=== PATIENT | female | born 2000 | race Caucasian/White ===

== ENCOUNTER 2020-07-29 11:07 | Emergency (ER) | payer BC, OTHER ==
[~2020-07-29] VITALS: Ht 170.2 cm; Wt 56.2 kg
[2020-07-29 11:22] VITALS: BP 120/66
--- NOTE | 2020-07-29 11:28 | NUR ---
PT AMBULATED TO BED 7 WITH STEADY GAIT
--- NOTE | 2020-07-29 11:42 | NUR ---
20 YEAR OLD FEMALE COMPLAINS OF NAUSEA, VOMITTING, AND DIARRHEA X TODAY. PT STATES THAT ANOTHER PERSON IN FAMILY IS HAVING SIMILAR SYMPTOMS. PT DENIES BLOOD IN VOMIT. BOWEL SOUNDS NORMOACTIVE, NONTENDER. PT AOX4, BREATHING EVEN AND UNLABORED, SKIN WARM AND DRY. BED IN LOWEST POSITION, LOCKED, BED RAIL UPX1. PMH - DENIES ALLERGIES - NKA
--- NOTE | 2020-07-29 11:57 | NUR ---
DR PACE AT BEDSIDE EVALUATING PT.
[2020-07-29] MEDS ORDERED: ONDANSETRON 4 MG ODT PO ONE (12:10)
--- NOTE | 2020-07-29 13:08 | NUR ---
LEESA AND INFLUENZA SWAB SENT TO LAB
[2020-07-29] MEDS ORDERED: ONDA-24 PO (14:07)
--- NOTE | 2020-07-29 14:10 | NUR ---
Note [email or web address] in EDM - 07/29/20 at 1436 by YISSEL Patient discharged with v/s stable. Written and verbal after care instructions about diarrhea, vomitting given and explained. Patient alert, oriented and verbalized understanding of instructions. Ambulatory with steady gait. All questions addressed prior to discharge. ID band removed. Patient advised to follow up with PMD. Rx of zofran given. Patient educated on indication of medication including possible reaction and side effects. Opportunity to ask questions provided and answered.
[2020-07-29 14:20] VITALS: BP 120/66
== END 2020-07-29 14:10 | disposition home or self-care (01) ==
LOC: MED 11:07
DX: R11.10 Vomiting, unspecified (principal); Z20.822 Contact with and (suspected) exposure to COVID-19; R19.7 Diarrhea, unspecified; R10.9 Unspecified abdominal pain; Z79.899 Other long term (current) drug therapy
CPT/HCPCS: 81002; 81025; 87426; 87804; 99283; Q0162

== ENCOUNTER 2021-08-20 11:13 | Emergency (ER) | payer BC, OTHER ==
[~2021-08-20] VITALS: Ht 170.2 cm; Wt 52.2 kg
[~2021-08-20 11:13] MED LIST: ONDA-188 PO
[2021-08-20 11:18] VITALS: BP 123/92
--- NOTE | 2021-08-20 11:22 | NUR ---
PT AMBULATED TO BED 12
[2021-08-20] MEDS ORDERED: ONDANSETRON 4 MG ODT PO ONE (11:35)
[2021-08-20] MEDS ORDERED: DIPHENOXYLATE /ATROPINE 2.5 MG TAB PO ONE (11:35)
[2021-08-20] MEDS ORDERED: KETOROLAC 60 MG/2 ML VIAL IM ONE (11:35)
--- NOTE | 2021-08-20 11:44 | NUR ---
pt c/o diffuse abdominal pain with n/v/d since 0900.
[2021-08-20 12:21] LABS: HEMATOCRIT 45.4 % (36-48); HEMOGLOBIN 15.1 g/dL (12.0-16.0); MEAN CORPUSCULAR HEMOGLOBIN 29 pg (27-31); MEAN CORPUSCULAR HGB CONC 33 g/dL (33-37); MEAN CORPUSCULAR VOLUME 87.4 fL (80-94); PLATELET COUNT (AUTO) 211 K/uL (140-450); RED CELL DISTRIBUTION WIDTH 13.2 % (11.6-13.7); WHITE BLOOD COUNT (AUTO) 12.2 K/uL (4.8-10.8)
[2021-08-20 12:22] LABS: ALBUMIN 4.4 g/dL (3.4-5.0); ANION GAP 11.8 (8-16); CARBON DIOXIDE 26.3 mmol/L (21-32); CREATININE 0.7 mg/dL (0.6-1.3); POTASSIUM 4.1 mmol/L (3.5-5.1); TOTAL BILIRUBIN 1.1 mg/dL (0.0-1.0)
[2021-08-20] MEDS ORDERED: TRAM50TA1 PO (12:42)
[2021-08-20] MEDS ORDERED: ONDA-188 SL (12:42)
[2021-08-20 13:03] LABS: LYMPHOCYTES % (MANUAL) 8 % (20-46); MONOCYTES % (MANUAL) 2 % (5-12)
[2021-08-20 13:04] LABS: BASOPHILS % (MANUAL) 0 % (0-2); EOSINOPHILS % (MANUAL) 0 % (0-4)
[2021-08-20] MEDS ORDERED: ATRO1TAB PO (13:23)
[2021-08-20 13:32] VITALS: BP 109/71
== END 2021-08-20 13:33 | disposition home or self-care (01) ==
LOC: MED 11:13
DX: K52.9 Noninfective gastroenteritis and colitis, unspecified (principal)
CPT/HCPCS: 36415; 80053; 81025; 83690; 85025; 96372; 99283; J1885; Q0162

== ENCOUNTER 2022-09-26 18:11 | Emergency (ER) | payer BC, OTHER ==
[~2022-09-26] VITALS: Ht 170.2 cm; Wt 61.3 kg
[~2022-09-26 18:11] MED LIST changes: +ATRO1TAB PO; +ONDA-188 SL
[2022-09-26 18:25] VITALS: BP 128/70; PULSE 85; RESP 20; TEMP 98.1; O2SAT 97
[2022-09-26 19:39] LABS: BASOPHILS % (AUTO) 0.2 % (0.0-2.0); EOSINOPHILS # (AUTO) 0.1 K/uL (0-0.4); EOSINOPHILS % (AUTO) 0.6 % (0.0-4.0); HEMOGLOBIN 13.3 g/dL (12.0-16.0); LYMPHOCYTES % (AUTO) 21.5 % (20.5-51.1); MEAN CORPUSCULAR HEMOGLOBIN 30 pg (27-31); MEAN CORPUSCULAR HGB CONC 34 g/dL (33-37); MEAN CORPUSCULAR VOLUME 88.7 fL (80-94); MONOCYTES # (AUTO) 0.6 K/uL (0.8-1.0); MONOCYTES % (AUTO) 6.5 % (1.7-9.3); NEUTROPHILS # (AUTO) 6.8 K/uL (1.8-7.7); NEUTROPHILS % (AUTO) 71.2 % (42.2-75.2); PLATELET COUNT (AUTO) 217 K/uL (140-450); RED CELL DISTRIBUTION WIDTH 13.9 % (11.6-13.7); WHITE BLOOD COUNT (AUTO) 9.5 K/uL (4.8-10.8)
[2022-09-26 19:58] LABS: ALBUMIN 3.3 g/dL (3.4-5.0); CALCIUM 8.4 mg/dL (8.5-10.1); CARBON DIOXIDE 26.8 mmol/L (21-32); CREATININE 0.7 mg/dL (0.6-1.3); POTASSIUM 3.8 mmol/L (3.5-5.1); TOTAL BILIRUBIN 0.7 mg/dL (0.0-1.0); TOTAL PROTEIN, SERUM 6.8 g/dL (6.4-8.2)
[2022-09-26 21:42] VITALS: BP 128/70; PULSE 85; RESP 20; TEMP 98.1; O2SAT 97
== END 2022-09-26 21:42 | disposition home or self-care (01) ==
LOC: MED 18:11
DX: O46.91 Antepartum hemorrhage, unspecified, first trimester (principal); Z3A.01 Less than 8 weeks gestation of pregnancy
CPT/HCPCS: 36415; 76801; 80053; 81002; 81025; 84702; 85025; 86900; 86901; 99284; Q0092